=== PATIENT | male | born 1975 | race Two or more races ===

== ENCOUNTER 2017-07-07 16:15 | Emergency (ER) | payer OTHER ==
[~2017-07-07] VITALS: Ht 172.7 cm; Wt 131.5 kg
[2017-07-07 19:00] VITALS: BP 136/81
== END 2017-07-07 19:36 | disposition home or self-care (01) ==
LOC: ER 16:19
DX: S06.0X9A Concussion with loss of consciousness of unspecified duration, initial encounter (principal); S00.93XA Contusion of unspecified part of head, initial encounter; R51 Headache; Z68.41 Body mass index [BMI] 40.0-44.9, adult; E66.01 Morbid (severe) obesity due to excess calories; W21.01XA Struck by football, initial encounter; Y93.61 Activity, american tackle football; Y99.8 Other external cause status; Y92.89 Other specified places as the place of occurrence of the external cause
CPT/HCPCS: 70450